=== PATIENT | female | born 1995 | race Hispanic/Latino ===

== ENCOUNTER 2017-03-10 11:52 | Emergency (ER) | payer OTHER ==
[~2017-03-10] VITALS: Ht 170.2 cm; Wt 88.4 kg
[~2017-03-10 11:52] MED LIST: ACETAMINOPHEN-120 ML PO; CAMILA0.35 MG PO; IBUPROFEN800 MG PO; PEN-VEE K,VEET250 MG PO
[2017-03-10 12:51] LABS: HEMATOCRIT 44.8 % (36.0-46.0); MCH 29.4 PG (29.0-34.0); MCHC 32.8 G/DL (30.0-36.0); MCV 89.6 FL (83-99); RBC DIS.WIDTH-CV 12.8 % (11.8-14.6); RBC DIS.WIDTH-SD 42.2 % (39-53); WHITE BLOOD COUNT 7.3 K/uL (4.1-10.2)
[2017-03-10 13:11] LABS: ALKALINE PHOSPHATASE 67 IU/L (3-129); ANION GAP 8 MEQ/L (2-14); CHLORIDE 106 MEQ/L (99-109); GFR ESTIMATE (CALCULATED) > 59 mL/min/; GLUCOSE 95 mg/dL (70-99); POTASSIUM 3.7 MEQ/L (3.7-5.4); SAMPLE HEMOLYSIS CHECK 0; SAMPLE ICTERIC CHECK 0; SAMPLE LIPEMIA CHECK 0; SODIUM 138 MEQ/L (136-147); TOTAL BILIRUBIN 1.2 MG/DL (0.0-1.0); UREA NITROGEN (BUN) 12 mg/dL (9-23)
[2017-03-10 13:28] LABS: QUANTITATIVE HCG < 4.0 MIU/ML
[2017-03-10 13:40] LABS: ADD MIUA? NO; BILIRUBIN NEGATIVE; BLOOD NEGATIVE; COLOR YELLOW ((YELLOW)); GLUCOSE (STRIP) NEGATIVE; KETONES 20; LEUKOCYTES NEGATIVE; NITRITE NEGATIVE; PROTEIN (STRIP) NEGATIVE; SPECIFIC GRAVITY 1.025 (1.000-1.030); UROBILINOGEN 0.2 MG/DL (0.2-1.0)
[2017-03-10 13:41] LABS: MEAN PLAT.VOLUME 11.7 uM^3 (9.5-12.4); PLAT.SUFFICIENCY ADEQUATE; PLATELET COUNT 206 K/uL (156-360)
[2017-03-10] MEDS ORDERED: AMOXICILLIN500 MG PO (13:48)
[2017-03-10] MEDS ORDERED: MOTRIN800 MG PO (13:48)
[2017-03-10] MEDS ORDERED: ZOFRAN ODT4 MG PO (13:48)
[2017-03-10 14:54] VITALS: BP 133/86
== END 2017-03-10 14:54 | disposition home or self-care (01) ==
LOC: EXP 11:52 → EME 11:52 → EXP 14:54
PROVIDERS: Nurse Practitioner Family
DX: J02.0 Streptococcal pharyngitis (principal); R11.2 Nausea with vomiting, unspecified
CPT/HCPCS: 80053; 81003; 84702; 85027; 87651 90; 99281; 99284; J1885; J2405; J7030

== ENCOUNTER 2017-06-02 07:06 | Inpatient (IN) | payer OTHER ==
[~2017-06-02] VITALS: Ht 170.2 cm; Wt 88.4 kg
[~2017-06-02 07:06] MED LIST changes: +AMOXICILLIN500 MG PO; +MOTRIN800 MG PO; +ZOFRAN ODT4 MG PO
[2017-06-02 08:31] LABS: EOSINOPHIL (%) 0 % (0-5); HEMATOCRIT 44.5 % (36.0-46.0); IMMATURE GRANULOCYTE COUNT 0.2 K/uL; INSTRUMENT ABS NEUTROPHIL CT 18.2 K/uL; LYMPHOCYTE COUNT 0.5 K/uL (1.0-2.8); MCHC 32.8 G/DL (30.0-36.0); MCV 88.5 FL (83-99); MEAN PLAT.VOLUME 12.4 uM^3 (9.5-12.4); MONOCYTE (%) 2.5 % (3-12); MONOCYTE COUNT 0.5 K/uL (0-0.8); NEUTROPHIL (%) 93.7 % (45-76); NEUTROPHIL COUNT 18.2 K/uL (1.8-6.4); PLATELET COUNT 164 K/uL (156-360); RBC DIS.WIDTH-CV 12.9 % (11.8-14.6); RBC DIS.WIDTH-SD 42.1 % (39-53); RED BLOOD COUNT 5.03 M/uL (3.80-5.20); WHITE BLOOD COUNT 19.4 K/uL (4.1-10.2)
[2017-06-02 08:40] LABS: CHLORIDE 105 mEq/L (99-109); POTASSIUM 3.4 mEq/L (3.7-5.4); SODIUM 136 mEq/L (136-147)
[2017-06-02 08:42] LABS: GLUCOSE 107 mg/dL (70-99)
[2017-06-02 08:43] LABS: ANION GAP 7 MEQ/L (2-14)
[2017-06-02 08:44] LABS: TOTAL BILIRUBIN 2.5 mg/dL (0.0-1.0)
[2017-06-02 08:46] LABS: ALKALINE PHOSPHATASE 70 IU/L (3-129); GFR ESTIMATE (CALCULATED) > 59 mL/min/
[2017-06-02 08:47] LABS: UREA NITROGEN (BUN) 10 mg/dL (9-23)
[2017-06-02 08:49] LABS: LIPASE 8 U/L (1.0-51.0)
[2017-06-02 09:00] LABS: QUANTITATIVE HCG < 4.0 MIU/ML
[2017-06-02 09:52] LABS: ADD MIUA? YES; BILIRUBIN NEGATIVE; BLOOD LARGE; COLOR YELLOW ((YELLOW)); GLUCOSE (STRIP) NEGATIVE; KETONES 80; LEUKOCYTES MODERATE; NITRITE NEGATIVE; PROTEIN (STRIP) 30; SPECIFIC GRAVITY 1.024 (1.000-1.030)
[2017-06-02 10:04] LABS: BACTERIA RARE /HPF; EPITHELIAL CELLS 1+ /HPF; MUCUS 3+ /LPF; RED BLOOD CELLS TNTC /HPF (0-5); UCUL ADDED? YES; WHITE BLOOD CELLS TNTC /HPF (0-5)
[2017-06-02] MEDS ORDERED: MOTRIN800 MG PO (11:37)
[2017-06-02] MEDS ORDERED: ZOVIRAX200 MG PO (11:38)
[2017-06-02 13:41] VITALS: BP 114/55
[2017-06-03 00:27] VITALS: BP 97/53
[2017-06-03 04:21] VITALS: BP 108/53
[2017-06-03 06:40] LABS: HEMATOCRIT 37.7 % (36.0-46.0); MCH 28.9 PG (29.0-34.0); MCHC 32.1 G/DL (30.0-36.0); MCV 90.2 FL (83-99); MEAN PLAT.VOLUME 12.1 uM^3 (9.5-12.4); PLATELET COUNT 125 K/uL (156-360); RBC DIS.WIDTH-CV 13.2 % (11.8-14.6); RED BLOOD COUNT 4.18 M/uL (3.80-5.20); WHITE BLOOD COUNT 26.1 K/uL (4.1-10.2)
[2017-06-03 06:41] LABS: ANION GAP 8 MEQ/L (2-14); CHLORIDE 111 MEQ/L (99-109); POTASSIUM 3.4 MEQ/L (3.7-5.4); SAMPLE HEMOLYSIS CHECK 0; SAMPLE ICTERIC CHECK 0; SAMPLE LIPEMIA CHECK 0; SODIUM 137 MEQ/L (136-147)
[2017-06-03 06:46] LABS: GFR ESTIMATE (CALCULATED) > 59 mL/min/; GLUCOSE 105 mg/dL (70-99); UREA NITROGEN (BUN) 9 mg/dL (9-23)
[2017-06-03 07:46] VITALS: BP 112/59
[2017-06-03 11:03] LABS: ALKALINE PHOSPHATASE 64 IU/L (3-129); DIRECT BILIRUBIN 0.3 mg/dL (0.0-0.3); TOTAL BILIRUBIN 1.4 MG/DL (0.0-1.0)
[2017-06-03 11:09] VITALS: BP 112/65
[2017-06-03 15:10] VITALS: BP 102/65
[2017-06-03 20:00] VITALS: BP 119/56
[2017-06-04] VITALS: BP 110/57
[2017-06-04 06:44] LABS: HEMATOCRIT 35.3 % (36.0-46.0); MCH 28.9 PG (29.0-34.0); MCV 90.3 FL (83-99); MEAN PLAT.VOLUME 12.1 uM^3 (9.5-12.4); PLATELET COUNT 133 K/uL (156-360); RBC DIS.WIDTH-CV 13.3 % (11.8-14.6); RBC DIS.WIDTH-SD 44.3 % (39-53); RED BLOOD COUNT 3.91 M/uL (3.80-5.20); WHITE BLOOD COUNT 17.6 K/uL (4.1-10.2)
[2017-06-04 07:06] LABS: ANION GAP 8 MEQ/L (2-14); CHLORIDE 110 MEQ/L (99-109); GFR ESTIMATE (CALCULATED) > 59 mL/min/; GLUCOSE 100 mg/dL (70-99); POTASSIUM 3.4 MEQ/L (3.7-5.4); SAMPLE HEMOLYSIS CHECK 0; SAMPLE ICTERIC CHECK 0; SAMPLE LIPEMIA CHECK 0; SODIUM 140 MEQ/L (136-147); UREA NITROGEN (BUN) 6 mg/dL (9-23)
[2017-06-04 07:26] VITALS: BP 103/67
[2017-06-04 08:16] LABS: C DIFF TOXIN NEGATIVE (NEGATIVE); PROBE CHECK PASS; SPECIMEN PROCESSING CONTROL PASS
[2017-06-04 11:50] VITALS: BP 122/60
[2017-06-04 16:06] VITALS: BP 125/69
[2017-06-04 19:47] VITALS: BP 147/67
[2017-06-04 23:47] VITALS: BP 114/59
[2017-06-05 03:46] VITALS: BP 112/73
[2017-06-05 07:06] LABS: MCH 29.2 PG (29.0-34.0); MCHC 32.9 G/DL (30.0-36.0); MCV 88.8 FL (83-99); MEAN PLAT.VOLUME 11.4 uM^3 (9.5-12.4); PLATELET COUNT 162 K/uL (156-360); RBC DIS.WIDTH-CV 13.4 % (11.8-14.6); RBC DIS.WIDTH-SD 43.8 % (39-53); RED BLOOD COUNT 3.94 M/uL (3.80-5.20); WHITE BLOOD COUNT 13.7 K/uL (4.1-10.2)
[2017-06-05 07:31] VITALS: BP 117/81
[2017-06-05 07:36] LABS: ALKALINE PHOSPHATASE 56 IU/L (3-129); ANION GAP 9 MEQ/L (2-14); C-REACTIVE PROTEIN > 240.0 MG/L (0-10); CHLORIDE 107 MEQ/L (99-109); GFR ESTIMATE (CALCULATED) > 59 mL/min/; GLUCOSE 115 mg/dL (70-99); POTASSIUM 2.9 MEQ/L (3.7-5.4); SAMPLE HEMOLYSIS CHECK 0; SAMPLE ICTERIC CHECK 0; SAMPLE LIPEMIA CHECK 0; SODIUM 140 MEQ/L (136-147); TOTAL BILIRUBIN 1.6 MG/DL (0.0-1.0); UREA NITROGEN (BUN) 2 mg/dL (9-23)
[2017-06-05 11:00] VITALS: BP 118/66
[2017-06-05 15:00] VITALS: BP 118/76
[2017-06-05 19:38] VITALS: BP 126/74
[2017-06-05 23:55] VITALS: BP 98/65
[2017-06-06 03:17] VITALS: BP 132/78
[2017-06-06 05:33] LABS: EOSINOPHIL (%) 1.2 % (0-5); EOSINOPHIL COUNT 0.1 K/uL (0-0.3); IMMATURE GRANULOCYTE (%) 0.9 % (0.0-0.7); IMMATURE GRANULOCYTE COUNT 0.1 K/uL; INSTRUMENT ABS NEUTROPHIL CT 7.7 K/uL; LYMPHOCYTE COUNT 1.2 K/uL (1.0-2.8); MCHC 33.9 G/DL (30.0-36.0); MCV 88.7 FL (83-99); MEAN PLAT.VOLUME 11.4 uM^3 (9.5-12.4); MONOCYTE (%) 12.4 % (3-12); MONOCYTE COUNT 1.3 K/uL (0-0.8); NEUTROPHIL (%) 73.7 % (45-76); NEUTROPHIL COUNT 7.7 K/uL (1.8-6.4); PLATELET COUNT 193 K/uL (156-360); RBC DIS.WIDTH-CV 13.4 % (11.8-14.6); RED BLOOD COUNT 4.06 M/uL (3.80-5.20); WHITE BLOOD COUNT 10.5 K/uL (4.1-10.2)
[2017-06-06 05:57] LABS: ANION GAP 7 MEQ/L (2-14); CHLORIDE 106 MEQ/L (99-109); GFR ESTIMATE (CALCULATED) > 59 mL/min/; GLUCOSE 101 mg/dL (70-99); POTASSIUM 3.4 MEQ/L (3.7-5.4); SAMPLE HEMOLYSIS CHECK 0; SAMPLE ICTERIC CHECK 0; SAMPLE LIPEMIA CHECK 0; SODIUM 139 MEQ/L (136-147); UREA NITROGEN (BUN) 2 mg/dL (9-23)
[2017-06-06 07:32] VITALS: BP 137/80
[2017-06-06 11:05] VITALS: BP 117/74
[2017-06-06 15:04] VITALS: BP 121/71
[2017-06-06 19:37] VITALS: BP 136/84
[2017-06-06 23:52] VITALS: BP 129/82
[2017-06-07 04:06] VITALS: BP 122/76
[2017-06-07 05:48] LABS: EOSINOPHIL (%) 1.8 % (0-5); EOSINOPHIL COUNT 0.2 K/uL (0-0.3); HEMATOCRIT 35.9 % (36.0-46.0); IMMATURE GRANULOCYTE (%) 2.8 % (0.0-0.7); IMMATURE GRANULOCYTE COUNT 0.3 K/uL; INSTRUMENT ABS NEUTROPHIL CT 7.4 K/uL; LYMPHOCYTE COUNT 1.2 K/uL (1.0-2.8); MCH 29.8 PG (29.0-34.0); MCV 87.6 FL (83-99); MEAN PLAT.VOLUME 10.4 uM^3 (9.5-12.4); MONOCYTE (%) 11.2 % (3-12); MONOCYTE COUNT 1.2 K/uL (0-0.8); NEUTROPHIL (%) 71.9 % (45-76); NEUTROPHIL COUNT 7.4 K/uL (1.8-6.4); PLATELET COUNT 237 K/uL (156-360); RBC DIS.WIDTH-CV 13.5 % (11.8-14.6); RBC DIS.WIDTH-SD 42.8 % (39-53); WHITE BLOOD COUNT 10.3 K/uL (4.1-10.2)
[2017-06-07 08:40] VITALS: BP 132/81
[2017-06-07 11:04] LABS: ANION GAP 7 MEQ/L (2-14); CHLORIDE 105 MEQ/L (99-109); GFR ESTIMATE (CALCULATED) > 59 mL/min/; GLUCOSE 93 mg/dL (70-99); POTASSIUM 3.8 MEQ/L (3.7-5.4); SAMPLE HEMOLYSIS CHECK 1; SAMPLE ICTERIC CHECK 0; SAMPLE LIPEMIA CHECK 0; SODIUM 139 MEQ/L (136-147); UREA NITROGEN (BUN) 3 mg/dL (9-23)
[2017-06-07] MEDS ORDERED: ZOFRAN4 MG PO (11:19)
[2017-06-07] MEDS ORDERED: BENTYL20 MG PO (11:19)
[2017-06-07] MEDS ORDERED: METRONIDAZOLE500 MG PO (11:19)
[2017-06-07] MEDS ORDERED: TRAMADOL HCL50 MG PO (11:42)
[2017-06-07 13:02] VITALS: BP 143/97
== END 2017-06-07 13:22 | disposition home or self-care (01) | DRG 392 ==
LOC: EME 07:06 → EDOF 11:24 → 5SOUTH 11:24 → ENRESERV 11:26 → EDOF 11:29 → ENRESERV 12:12 → 5SOUTH 13:28 → ENPENDDIS 06-07 → 5SOUTH 06-07 13:22
PROVIDERS: Emergency Medicine; Internal Medicine; Internal Medicine Gastroenterology; Physician Assistant Medical
DX: A08.39 Other viral enteritis (principal); R65.10 Systemic inflammatory response syndrome (SIRS) of non-infectious origin without acute organ dysfunction; G43.909 Migraine, unspecified, not intractable, without status migrainosus; R50.81 Fever presenting with conditions classified elsewhere; F17.210 Nicotine dependence, cigarettes, uncomplicated; F12.90 Cannabis use, unspecified, uncomplicated; E87.6 Hypokalemia; E86.0 Dehydration; K76.89 Other specified diseases of liver; R00.0 Tachycardia, unspecified; D18.03 Hemangioma of intra-abdominal structures; Z60.2 Problems related to living alone
CPT/HCPCS: 71020; 74177; 76705; 80048; 80053; 80076; 81003; 83605; 83690; 84702; 85025; 85027; 86140; 87040; 87086; 87177; 87329; 87493; 87506; 99281; 99285; J1644; J1885; J2270; J2405; J7030; J7042; S0028

== ENCOUNTER 2018-04-02 17:05 | Emergency (ER) | payer OTHER ==
[~2018-04-02] VITALS: Ht 170.2 cm; Wt 83.1 kg
[~2018-04-02 17:05] MED LIST changes: +BENTYL20 MG PO; +METRONIDAZOLE500 MG PO; +TRAMADOL HCL50 MG PO; +ZOFRAN4 MG PO; +ZOVIRAX200 MG PO
[2018-04-02 17:30] LABS: HEMATOCRIT 41.8 % (36.0-46.0); HEMOGLOBIN 14.2 G/DL (11.9-15.5); MCH 30.1 PG (29.0-34.0); MCV 88.7 FL (83-99); PLATELET COUNT 184 K/uL (156-360); RBC DIS.WIDTH-CV 11.9 % (11.8-14.6); RBC DIS.WIDTH-SD 38.5 % (39-53); RED BLOOD COUNT 4.71 M/uL (3.80-5.20); WHITE BLOOD COUNT 4.1 K/uL (4.1-10.2)
[2018-04-02 17:41] LABS: APPEARANCE SL.HAZY ((CLEAR)); BILIRUBIN NEGATIVE; BLOOD NEGATIVE; COLOR YELLOW ((YELLOW)); GLUCOSE (STRIP) NEGATIVE; KETONES 5; LEUKOCYTES NEGATIVE; NITRITE NEGATIVE; PROTEIN (STRIP) 30; SPECIFIC GRAVITY 1.032 (1.000-1.030); UROBILINOGEN 0.2 MG/DL (0.2-1.0)
[2018-04-02 17:41] LABS: ALBUMIN 4.2 g/dL (3.2-4.8)
[2018-04-02 17:42] LABS: CHLORIDE 106 mEq/L (99-109); POTASSIUM 3.2 mEq/L (3.7-5.4); SODIUM 136 mEq/L (136-147)
[2018-04-02 17:44] LABS: GLUCOSE 84 mg/dL (70-99); TOTAL PROTEIN 7.5 g/dL (6.4-8.3)
[2018-04-02 17:46] LABS: TOTAL BILIRUBIN 1.1 mg/dL (0.0-1.0)
[2018-04-02 17:47] LABS: ALKALINE PHOSPHATASE 80 IU/L (3-129)
[2018-04-02 17:48] LABS: CREATININE 0.7 mg/dL (0.6-1.3); GFR ESTIMATE (CALCULATED) > 59 mL/min/
[2018-04-02 17:49] LABS: AST (GOT) 27 IU/L (2-34); DIRECT BILIRUBIN 0.5 mg/dL (0.0-0.3); UREA NITROGEN (BUN) 11 mg/dL (9-23)
[2018-04-02 17:51] LABS: ALT (GPT) 21 IU/L (3-49); LIPASE 16 U/L (1.0-51.0)
[2018-04-02 17:57] LABS: QUANTITATIVE HCG < 4.0 MIU/ML
[2018-04-02] MEDS ORDERED: ZOFRAN4 MG PO (18:24)
[2018-04-02 18:28] VITALS: BP 124/75
[2018-04-02 18:48] LABS: EPITHELIAL CELLS NONE SEEN /HPF; RED BLOOD CELLS NONE SEEN /HPF (0-5); WHITE BLOOD CELLS NONE SEEN /HPF (0-5)
[2018-04-02 18:49] LABS: AMORPHOUS URATES CRYSTALS 3+; BACTERIA NONE SEEN /HPF; MUCUS NONE SEEN /LPF; UCUL ADDED? NO
== END 2018-04-02 18:30 | disposition home or self-care (01) ==
LOC: EME 17:05
PROVIDERS: Emergency Medicine
DX: K52.9 Noninfective gastroenteritis and colitis, unspecified (principal); F17.200 Nicotine dependence, unspecified, uncomplicated
CPT/HCPCS: 80048; 80076; 81003; 83690; 84702; 85027; 87086; 99281; 99283